=== PATIENT | female | born 1965 | race Caucasian/White ===

== ENCOUNTER → 2016-05-08 | Outpatient (CLI) | payer BC ==
--- NOTE | 2016-05-08 09:20 | REPMRS ---
Patient History The patient states she had a clinical breast exam in 04/2016. Patient is postmenopausal. No known family history of cancer. Took hormonal contraceptives for 3 years. Digital Woman Screen Mammo: May 08, 2016 - Exam #: [id number] Bilateral CC and MLO view(s) were taken. Technologist: Kecia Hernandez Technologist Prior study comparison: April 28, 2015, digital woman screen mammo performed at [facility]. April 27, 2014, digital woman screen mammo performed at [facility]. April 25, 2013, bilateral bilat screen digital mammo, performed at [facility] ([facility] FINDINGS: The breast tissue is almost entirely fat. There has been no change in the appearance of the mammogram from the prior studies. There is no interval development of dominant mass, architectural distortion, or clustered microcalcification typical of malignancy. ASSESSMENT: BI-RADS/ACR category 1 mammogram. Negative. Recommendation Routine screening mammogram of both breasts in 1 year (for women over age 40). This mammogram was interpreted with the aid of an FDA-approved computer-aided dectection system. Electronically Signed By: Kirk Hoyos MD 05/08/16 0919
== END ==
LOC: M WHC 08:42
PROVIDERS: ATTEND Nurse Practitioner Women's Health
DX: Z12.31 Encounter for screening mammogram for malignant neoplasm of breast (principal)

== ENCOUNTER → 2017-05-10 | Outpatient (CLI) | payer BC | LOC: M WHC 12:50 | DX: Z12.31 Encounter for screening mammogram for malignant neoplasm of breast (principal) | CPT/HCPCS: 77067 ==

== ENCOUNTER → 2018-06-10 | Outpatient (CLI) | payer BC ==
--- NOTE | 2018-06-10 17:39 | REPMRS ---
Patient History The patient states she had a clinical breast exam in 06/18 No known family history of cancer. Took hormonal contraceptives for 3 years. Digital Woman Screen Mammo: June 10, 2018 - Exam #: [id number] Bilateral CC and MLO view(s) were taken. Technologist: Natalia Ruiz, Technologist Prior study comparison: May 10, 2017, digital woman screen mammo performed at [facility]. May 08, 2016, digital woman screen mammo performed at [facility]. FINDINGS: There are scattered fibroglandular densities. There has been no change in the appearance of the mammogram from the prior studies. There is a mild amount of residual fibroglandular tissue which is fairly symmetric. There is no interval development of dominant mass, architectural distortion, or clustered microcalcification suggestive of malignancy. Scattered lymph nodes are seen in the axillae. 3-D tomosynthesis shows no additional findings. No significant changes when compared with prior studies. Assessment: BI-RADS/ACR category 2 mammogram. Benign Findings. Recommendation Routine screening mammogram in 1 year (for women over age 40). This mammogram was interpreted with the aid of an FDA-approved computer-aided dectection system. A. Negative x-ray reports should not delay biopsy if a dominant or clinically suspicious mass is present. B. Four to eight percent of cancers are not identified by mammography. C. Adenosis and dense breast may obscure an underlying neoplasm. Electronically Signed By: Orestes Dixon MD 06/10/18 1296
== END ==
LOC: M WHC 12:47
PROVIDERS: ATTEND Nurse Practitioner Women's Health
DX: Z12.31 Encounter for screening mammogram for malignant neoplasm of breast (principal)

== ENCOUNTER 2019-01-13 13:28 | Emergency (ER) | payer BC ==
[~2019-01-13] VITALS: Ht 162.6 cm; Wt 82.2 kg
[2019-01-13] MEDS ORDERED: DOXY100T27 (13:44)
[2019-01-13] MEDS ORDERED: ATOR40TA75 (13:44)
[2019-01-13] MEDS ORDERED: ALBU8.5H (13:44)
[2019-01-13] MEDS ORDERED: SERT-141 PO (17:57)
[2019-01-13 18:17] LABS: BASO # 0.1 10^3/uL (0.0-0.2); BASO % 0.5 % (0.0-1.0); EOS # 0.6 10^3/uL (0.0-0.5); HEMATOCRIT 39.5 % (36.0-47.0); HEMOGLOBIN 13.4 g/dl (12.0-15.5); LYMPH # 4.4 10^3/uL (1.5-5.0); LYMPH % 38.5 % (24.0-44.0); MEAN CORPUSCULAR HEMOGLOBIN 31.5 pg (27.0-33.0); MEAN CORPUSCULAR HGB CONC 33.9 g/dl (32.0-36.5); MEAN CORPUSCULAR VOLUME 92.7 fl (80.0-96.0); MONO # 0.6 10^3/uL (0.0-0.8); MONO % 5.3 % (0.0-5.0); NEUTROPHILS # 5.7 10^3/uL (1.5-8.5); NEUTROPHILS % 50.3 % (36.0-66.0); PLATELET COUNT, AUTOMATED 270 10^3/uL (150-450); RED BLOOD COUNT 4.26 10^6/uL (4.00-5.40); WHITE BLOOD COUNT 11.3 10^3/uL (4.0-10.0)
--- NOTE | 2019-01-13 18:44 | REP ---
REASON FOR EXAM: Dyspnea and cough. FINDINGS: The superior mediastinal structures are midline. The cardiac silhouette is unremarkable in size, shape, and position. The diaphragmatic surfaces of the lungs are regular, and the costophrenic angles are clear. The pulmonary bailey are clear. The imaged osseous structures are intact. IMPRESSION: There is no acute cardiopulmonary disease. Electronically Signed by Kem Márquez DO 01/14/2019 02:14 P
[2019-01-13 18:45] VITALS: O2SAT 94
[2019-01-13 18:49] LABS: ALBUMIN 4.2 GM/DL (3.2-5.2); ALT/SGPT 31 U/L (12-78); BILIRUBIN,DIRECT 0.1 MG/DL (0.0-0.2); BILIRUBIN,TOTAL 0.5 MG/DL (0.2-1.0); BLOOD UREA NITROGEN 8 MG/DL (7-18); CALCIUM LEVEL 9.3 MG/DL (8.5-10.1); CARBON DIOXIDE LEVEL 28 MEQ/L (21-32); CHLORIDE LEVEL 99 MEQ/L (98-107); CREATININE FOR GFR 0.79 MG/DL (0.55-1.30); GLOMERULAR FILTRATION RATE > 60.0 (>51); GLUCOSE, FASTING 83 MG/DL (70-100); SODIUM LEVEL 134 MEQ/L (136-145); THYROXINE (T4) 11.7 UG/DL (4.5-12.0); TOTAL PROTEIN 6.9 GM/DL (6.4-8.2)
[2019-01-13] MEDS ORDERED: TESS100C PO (21:00)
[2019-01-13 21:09] VITALS: BP 111/76
--- NOTE | 2019-01-14 07:42 | ECGEPIP ---
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
== END 2019-01-13 21:10 | disposition home or self-care (01) ==
LOC: M ED 13:28
DX: R05 Cough (principal); Z79.899 Other long term (current) drug therapy; Z88.2 Allergy status to sulfonamides

== ENCOUNTER → 2020-02-05 | Outpatient (CLI) | payer BC ==
[~2020-02-05] MED LIST: ALBU8.5H; ATOR40TA75; DOXY100T27; SERT-141 PO; TESS100C PO
--- NOTE | 2020-02-05 16:41 | REPMRS ---
Patient History The patient states she has not had a clinical breast exam in over a year. Patient is postmenopausal and has history of melanoma skin cancer at age 53. No known family history of cancer. Took hormonal contraceptives for 3 years. 3D TOMOSYNTHESIS WAS PERFORMED. [facility] Volpara breast density b. Digital Woman Screen Mammo: February 05, 2020 - Exam #: [id number] Bilateral CC and MLO view(s) were taken. Technologist: Elvira Yousif, Technologist Prior study comparison: June 10, 2018, bilateral digital woman screen mammo performed at [facility]. May 10, 2017, digital woman screen mammo performed at [facility]. FINDINGS: There are scattered fibroglandular densities. There has been no change in the appearance of the mammogram from the prior studies. There is a mild amount of residual fibroglandular tissue which is fairly symmetric. There is no interval development of dominant mass, architectural distortion, or clustered microcalcification suggestive of malignancy. Assessment: BI-RADS/ACR category 1 mammogram. Negative Mammogram. Recommendation Routine screening mammogram in 1 year (for women over age 40). This mammogram was interpreted with the aid of an FDA-approved computer-aided dectection system. Electronically Signed By: Low Maldonado MD 02/05/20 1640
== END ==
LOC: M WHC 15:38
PROVIDERS: ATTEND Family Medicine
DX: Z12.31 Encounter for screening mammogram for malignant neoplasm of breast (principal)

== ENCOUNTER → 2020-09-10 | Outpatient (CLI) | payer BC ==
[~2020-09-10] MED LIST changes: -ATOR40TA75; +ATOR40TA75 PO; +D31000TA2 PO; +vitamin b2 PO
== END ==
LOC: M LABSMTC 11:17
PROVIDERS: ATTEND Anesthesiology
DX: Z01.812 Encounter for preprocedural laboratory examination (principal); Z20.822 Contact with and (suspected) exposure to COVID-19

== ENCOUNTER 2020-11-21 13:34 | Emergency (ER) | payer BC ==
[~2020-11-21] VITALS: Ht 162.6 cm; Wt 86.4 kg
[2020-11-21] MEDS ORDERED: LIDOCAINE 5% (LIDODERM) PATCH TD ONE (15:35)
[2020-11-21] MEDS ORDERED: methocarbamoL 500 MG TAB PO ONE (15:35)
--- NOTE | 2020-11-21 15:53 | REP ---
INDICATION: anterior upper chest wall pain after near fall/caught hersel COMPARISON: 01/13/2019 TECHNIQUE: Portable AP view of the chest FINDINGS: The mediastinum and cardiac silhouette are stable and within normal limits for portable technique. The lung bailey are clear without acute consolidation, effusion, or pneumothorax. Skeletal structures are intact. IMPRESSION: No acute cardiopulmonary process appreciated. <Electronically signed by Galdino Jim > 11/21/20 1545
--- NOTE | 2020-11-21 15:55 | REP ---
INDICATION: neck pain s/p near fall COMPARISON: None. TECHNIQUE: Axial noncontrast images from the skull base to the thoracic inlet with coronal and sagittal re-formations This CT examination was performed using the following dose reduction techniques: Automated exposure control, adjustment of mA and/or kv according to the patient's size, and use of iterative reconstruction technique. FINDINGS: Generalized age-related changes are appreciated. Normal alignment and lordosis is maintained. Cervical vertebral bodies including transverse processes and spinous processes are intact and there is no evidence for acute fracture / compression injury or subluxation. Spinal canal is patent. Posterior elements are intact. Paravertebral soft tissues are normal. IMPRESSION: Essentially age-appropriate noncontrast cervical spine CT. No evidence for acute pathology or trauma/injury. <Electronically signed by Galdino Jim > 11/21/20 [id number]
[2020-11-21] MEDS ORDERED: LIDO5DIS41 TOP (16:38)
[2020-11-21] MEDS ORDERED: METH-1164 PO (16:38)
[2020-11-21 16:42] VITALS: BP 116/74
[2020-11-21] MEDS ORDERED: **NOTE PATIENT COMMENT** MISC XX SCH (21:00)
== END 2020-11-21 16:50 | disposition home or self-care (01) ==
LOC: M ED 13:34
DX: S16.1XXA Strain of muscle, fascia and tendon at neck level, initial encounter (principal); S29.011A Strain of muscle and tendon of front wall of thorax, initial encounter; X50.0XXA Overexertion from strenuous movement or load, initial encounter; Y92.814 Boat as the place of occurrence of the external cause; Y93.89 Activity, other specified; Y99.9 Unspecified external cause status; F41.9 Anxiety disorder, unspecified; Z88.2 Allergy status to sulfonamides; Z79.899 Other long term (current) drug therapy

== ENCOUNTER → 2020-12-12 | Outpatient (CLI) | payer BC ==
[~2020-12-12] MED LIST changes: +LIDO5DIS41 TOP; +METH-1164 PO
== END ==
LOC: M RAD 10:23
PROVIDERS: ATTEND Physician Assistant
DX: M54.2 Cervicalgia (principal)

== ENCOUNTER → 2021-02-09 | Outpatient (REF) | payer BC | LOC: M LAB REF 16:46 | PROVIDERS: ATTEND Physician Assistant | DX: J06.9 Acute upper respiratory infection, unspecified (principal) ==

== ENCOUNTER → 2021-02-21 | Outpatient (CLI) | payer BC ==
--- NOTE | 2021-02-21 11:47 | REPMRS ---
Patient History The patient states she had a clinical breast exam in February 2020. No known family history of cancer. Took hormonal contraceptives for 3 years. Tomosynthesis is performed. Volpara breast density is a. [facility] lifetime risk of breast cancer 7.7%. Patient states no breast complaints today. Patient has signed MRS History Sheet. Digital Woman Screen Mammo: February 21, 2021 - Exam #: [id number] Bilateral CC and MLO view(s) were taken. Technologist: Natalia Ruiz, Technologist Prior study comparison: February 05, 2020, bilateral digital woman screen mammo performed at [facility]. June 10, 2018, bilateral digital woman screen mammo performed at [facility]. FINDINGS: There are scattered fibroglandular densities. There has been no change in the appearance of the mammogram from the prior studies. There is a mild amount of residual fibroglandular tissue which is fairly symmetric. There is no interval development of dominant mass, architectural distortion, or clustered microcalcification suggestive of malignancy. Assessment: BI-RADS/ACR category 1 mammogram. Negative Mammogram. Recommendation Routine screening mammogram in 1 year (for women over age 40). This mammogram was interpreted with the aid of an FDA-approved computer-aided dectection system. Electronically Signed By: Low Maldonado MD 02/21/21 4252
== END ==
LOC: M WHC 09:50
PROVIDERS: ATTEND Family Medicine
DX: Z12.31 Encounter for screening mammogram for malignant neoplasm of breast (principal)

== ENCOUNTER → 2021-08-24 | Outpatient (CLI) | payer BC ==
[~2021-08-24] MED LIST changes: -D31000TA2 PO; +VITA100093 PO
== END ==
LOC: M WUC 10:02
PROVIDERS: ATTEND Physician Assistant Medical
DX: M25.572 Pain in left ankle and joints of left foot (principal)

== ENCOUNTER → 2022-01-20 | Outpatient (REF) | payer BC | LOC: M LAB REF 16:04 | PROVIDERS: ATTEND Physician Assistant | DX: B34.9 Viral infection, unspecified (principal) ==

== ENCOUNTER → 2022-02-22 | Outpatient (CLI) | payer BC | LOC: M WHC 08:58 | PROVIDERS: ATTEND Family Medicine | DX: Z12.31 Encounter for screening mammogram for malignant neoplasm of breast (principal) ==

== ENCOUNTER → 2022-06-07 | Outpatient (REF) | payer BC | LOC: M LAB REF 10:52 | PROVIDERS: ATTEND Family Medicine | DX: R19.7 Diarrhea, unspecified (principal) ==

== ENCOUNTER → 2022-06-19 | Outpatient (CLI) | payer BC ==
[~2022-06-19] MED LIST changes: +GASTROGRAFIN SOLUTION 30ML As Ordered ONE; +ISOVUE-370 76% 100ML VIAL As Ordered ONE
== END ==
LOC: M RAD 14:09
PROVIDERS: ATTEND Family Medicine
DX: R63.4 Abnormal weight loss (principal); R10.13 Epigastric pain; R11.0 Nausea; K57.90 Diverticulosis of intestine, part unspecified, without perforation or abscess without bleeding
CPT/HCPCS: 74177; Q9963; Q9967

== ENCOUNTER → 2022-07-19 | Outpatient (REF) | payer BC ==
[~2022-07-19] MED LIST changes: -GASTROGRAFIN SOLUTION 30ML As Ordered ONE; -ISOVUE-370 76% 100ML VIAL As Ordered ONE
== END ==
LOC: M LAB REF 20:13
PROVIDERS: ATTEND Nurse Practitioner Adult Health
DX: R19.7 Diarrhea, unspecified (principal)

== ENCOUNTER → 2023-04-03 | Outpatient (CLI) | payer BC | LOC: M WHC 14:49 | PROVIDERS: ATTEND Nurse Practitioner Adult Health | DX: Z12.31 Encounter for screening mammogram for malignant neoplasm of breast (principal) ==

== ENCOUNTER → 2023-04-30 | Outpatient (REF) | payer BC, OTHER | LOC: M SFHCWAGY 18:32 | PROVIDERS: ATTEND Nurse Practitioner Family | DX: Z12.4 Encounter for screening for malignant neoplasm of cervix (principal) | CPT/HCPCS: 87624; G0123 ==

== ENCOUNTER 2023-08-15 10:15 | Day surgery (SDC) | payer BC ==
[~2023-08-15] VITALS: Ht 162.6 cm; Wt 83.6 kg
[2023-08-15] MEDS: NS 1,000 ML IV ONE (10:32)
[2023-08-15 12:00] VITALS: TEMP 98.4
[2023-08-15 12:30] VITALS: BP 168/81; O2SAT 97
== END 2023-08-15 12:43 | disposition home or self-care (01) ==
LOC: M OPP 10:15
PROVIDERS: ATTEND Internal Medicine Gastroenterology
DX: Z12.11 Encounter for screening for malignant neoplasm of colon (principal); K57.30 Diverticulosis of large intestine without perforation or abscess without bleeding; K64.0 First degree hemorrhoids; K21.9 Gastro-esophageal reflux disease without esophagitis; Z86.010 Personal history of colon polyps; E78.00 Pure hypercholesterolemia, unspecified; Z79.899 Other long term (current) drug therapy; Z85.828 Personal history of other malignant neoplasm of skin; Z88.2 Allergy status to sulfonamides

== ENCOUNTER → 2024-08-06 | Outpatient (CLI) | payer BC | LOC: M WHC 10:28 | PROVIDERS: ATTEND Nurse Practitioner Adult Health | DX: Z12.31 Encounter for screening mammogram for malignant neoplasm of breast (principal); R92.313 Mammographic fatty tissue density, bilateral breasts ==

== ENCOUNTER → 2024-08-14 | Outpatient (REF) | payer BC ==
[~2024-08-14] MED LIST changes: +LIDO1ADH93 TOP; -LIDO5DIS41 TOP
== END ==
LOC: M SFHCDERM 15:58
PROVIDERS: ATTEND Nurse Practitioner Family
DX: C44.529 Squamous cell carcinoma of skin of other part of trunk (principal)

== ENCOUNTER → 2025-02-13 | Outpatient (CLI) | payer BC | LOC: M ADAMS 08:27 | PROVIDERS: ATTEND Nurse Practitioner Adult Health | DX: M54.2 Cervicalgia (principal) ==